=== PATIENT | male | born 1990 | race Caucasian/White ===

== ENCOUNTER 2017-12-11 06:19 | Emergency (ER) | payer BC ==
[~2017-12-11] VITALS: Ht 180.3 cm; Wt 136.1 kg
[2017-12-11] MEDS ORDERED: NAPROSYN500 MG PO (07:39)
[2017-12-11 07:40] VITALS: BP 158/97
== END 2017-12-11 07:40 | disposition home or self-care (01) ==
LOC: EME 06:19
DX: S92.514A Nondisplaced fracture of proximal phalanx of right lesser toe(s), initial encounter for closed fracture (principal); W01.0XXA Fall on same level from slipping, tripping and stumbling without subsequent striking against object, initial encounter; M79.89 Other specified soft tissue disorders
CPT/HCPCS: 73630; 99281; 99284